=== PATIENT | female | born 1985 | race Caucasian/White ===

== ENCOUNTER 2018-09-05 07:37 | Day surgery (SDC) | payer OTHER ==
[~2018-09-05 07:37] MED LIST: LIDOCAINE 2% (SDV) 5 ML INJ
[2018-09-05] MEDS ORDERED: PROPOFOL 100 ML (09:36)
[2018-09-05] MEDS ORDERED: ROCURONIUM 50 MG INJ (09:37)
[2018-09-05] MEDS ORDERED: KETOROLAC 30 MG INJ (09:49)
[2018-09-05] MEDS ORDERED: ONDANSETRON 4 MG INJ (09:49)
[2018-09-05] MEDS ORDERED: DEXAMETHASONE 4 MG/ML 5 ML INJ (09:49)
[2018-09-05] MEDS ORDERED: CEFAZOLIN 1 GM INJ (09:49)
[2018-09-05] MEDS ORDERED: SUGAMMADEX SODIUM 200 MG/2 ML VIAL IV (10:18)
[2018-09-05] MEDS ORDERED: ACETAMINOPHEN 325 MG TAB PO (10:30)
[2018-09-05] MEDS ORDERED: FENTAnyl 50 MCG/ML VIAL (10:37)
[2018-09-05] MEDS: FENTAnyl 50 MCG/ML VIAL IV ×2 (10:40→10:51)
[2018-09-05] MEDS: HYDROmorphONE 1 MG/5 ML IV SYRINGE IV ×2 (10:59→11:05)
[2018-09-05] MEDS: ONDANSETRON 4 MG INJ IV (11:00)
[2018-09-05] MEDS ORDERED: MIDAZOLAM 1 MG/ML 2 ML INJ IV (11:00)
[2018-09-05] MEDS ORDERED: hydrALAzine 20 MG INJ IV (11:00)
[2018-09-05] MEDS ORDERED: OXYCODONE/ACETAMINOPHEN (5/325) TAB PO (11:00)
[2018-09-05] MEDS ORDERED: ALBUTEROL 0.083% (NEB) 2.5 MG/3 ML AMP HHN (11:00)
[2018-09-05] MEDS ORDERED: LABETALOL HCL 20MG INJ IV (11:00)
[2018-09-05] MEDS ORDERED: EPHEDrine SULFATE 50 MG/5 ML SYG IV (11:00)
[2018-09-05] MEDS ORDERED: HYDROmorphONE 1 MG/5 ML IV SYRINGE IV (11:00)
[2018-09-05] MEDS ORDERED: MEPERIDINE 25 MG INJ IV (11:00)
[2018-09-05] MEDS ORDERED: METOCLOPRAMIDE 10 MG INJ IV (11:00)
[2018-09-05] MEDS ORDERED: FENTAnyl 50 MCG/ML VIAL IV ×2 (11:00)
[2018-09-05] MEDS ORDERED: KETOROLAC 30 MG INJ IV (11:00)
[2018-09-05] MEDS ORDERED: DIPHENHYDRAMINE 50 MG INJ IV (11:00)
[2018-09-05] MEDS: OXYCODONE/ACETAMINOPHEN (5/325) TAB PO (11:09)
== END 2018-09-05 12:40 | disposition home or self-care (01) ==
LOC: SDS 07:37
DX: Z30.2 Encounter for sterilization (principal); Z30.432 Encounter for removal of intrauterine contraceptive device
CPT/HCPCS: 58301; 84702; 86850; 86900; 86901; 88300